=== PATIENT | female | born 1940 | race Hispanic/Latino ===

== ENCOUNTER → 2017-12-04 | Outpatient (CLI) | payer OTHER, MEDICARE ==
[~2017-12-04] MED LIST: LIDOCAINE/PRILOCAINE CREAM 5GM TUBE TP ONE
[2017-12-04 13:37] VITALS: BP 135/68
== END | disposition home or self-care (01) ==
LOC: WHH 09:00
PROVIDERS: ATTEND Surgery
DX: I87.322 Chronic venous hypertension (idiopathic) with inflammation of left lower extremity (principal); L97.222 Non-pressure chronic ulcer of left calf with fat layer exposed; K21.9 Gastro-esophageal reflux disease without esophagitis; F32.9 Major depressive disorder, single episode, unspecified; Z87.891 Personal history of nicotine dependence
CPT/HCPCS: 11042; 87070; 87077 ×3; 87186 ×3; A6021; A6212; G0463; J3490

== ENCOUNTER → 2017-12-11 | Outpatient (CLI) | payer OTHER, MEDICARE ==
[~2017-12-11] MED LIST changes: +GENTAMICIN SULFATE 15 GM CREAM.GM. TP ONE; -LIDOCAINE/PRILOCAINE CREAM 5GM TUBE TP ONE
[2017-12-11 12:44] VITALS: BP 134/70
== END | disposition home or self-care (01) ==
LOC: WHH 09:45
PROVIDERS: ATTEND Surgery
DX: I87.322 Chronic venous hypertension (idiopathic) with inflammation of left lower extremity (principal); L97.222 Non-pressure chronic ulcer of left calf with fat layer exposed; K21.9 Gastro-esophageal reflux disease without esophagitis; F32.9 Major depressive disorder, single episode, unspecified; Z87.891 Personal history of nicotine dependence
CPT/HCPCS: G0463

== ENCOUNTER → 2017-12-18 | Outpatient (CLI) | payer OTHER, MEDICARE ==
[~2017-12-18] MED LIST changes: -GENTAMICIN SULFATE 15 GM CREAM.GM. TP ONE; +LIDOCAINE/PRILOCAINE CREAM 5GM TUBE TP ONE
[2017-12-18 13:41] VITALS: BP 135/79
== END | disposition home or self-care (01) ==
LOC: WHH 08:45
PROVIDERS: ATTEND Surgery
DX: I87.322 Chronic venous hypertension (idiopathic) with inflammation of left lower extremity (principal); L97.222 Non-pressure chronic ulcer of left calf with fat layer exposed; K21.9 Gastro-esophageal reflux disease without esophagitis; F32.9 Major depressive disorder, single episode, unspecified; M19.272 Secondary osteoarthritis, left ankle and foot; B95.2 Enterococcus as the cause of diseases classified elsewhere; B96.5 Pseudomonas (aeruginosa) (mallei) (pseudomallei) as the cause of diseases classified elsewhere; Z87.891 Personal history of nicotine dependence
CPT/HCPCS: G0463; J3490; 11042

== ENCOUNTER → 2017-12-25 | Outpatient (CLI) | payer OTHER, MEDICARE ==
[2017-12-25 13:07] VITALS: BP 127/53
== END | disposition home or self-care (01) ==
LOC: WHH 09:15
PROVIDERS: ATTEND Surgery
DX: I87.332 Chronic venous hypertension (idiopathic) with ulcer and inflammation of left lower extremity (principal); L97.222 Non-pressure chronic ulcer of left calf with fat layer exposed; K21.9 Gastro-esophageal reflux disease without esophagitis; F32.9 Major depressive disorder, single episode, unspecified; B95.2 Enterococcus as the cause of diseases classified elsewhere; B96.5 Pseudomonas (aeruginosa) (mallei) (pseudomallei) as the cause of diseases classified elsewhere; Z87.891 Personal history of nicotine dependence
CPT/HCPCS: 11042; A6021; J3490

== ENCOUNTER → 2018-01-01 | Outpatient (CLI) | payer OTHER, MEDICARE | END | disposition home or self-care (01) | LOC: RAH 11:17 | PROVIDERS: ATTEND Surgery | DX: S81.802A Unspecified open wound, left lower leg, initial encounter (principal); M77.32 Calcaneal spur, left foot; M19.272 Secondary osteoarthritis, left ankle and foot; X58.XXXA Exposure to other specified factors, initial encounter; Y93.89 Activity, other specified; Y92.89 Other specified places as the place of occurrence of the external cause; Y99.8 Other external cause status | CPT/HCPCS: 73590 ==

== ENCOUNTER → 2018-01-01 | Outpatient (CLI) | payer OTHER, MEDICARE ==
[2018-01-01 10:50] LABS: BASOPHILS % (AUTO) 0.6 % (0.0-5.0); EOSINOPHILS % (AUTO) 2.1 % (0.0-8.0); HEMATOCRIT 37.7 % (36-48); LYMPHOCYTES % (AUTO) 22.1 % (21.0-51.0); MEAN CORPUSCULAR HEMOGLOBIN 31.2 pg (27.0-33.0); MEAN CORPUSCULAR HGB CONC 33.4 g/dL (32.0-36.0); MEAN CORPUSCULAR VOLUME 93.4 fL (79-99); MONOCYTES % (AUTO) 10.3 % (3.0-13.0); NEUTROPHILS % (AUTO) 64.9 % (40.0-77.0); NUCLEATED RED BLOOD CELLS 0.1 % (0.0-0.19); PLATELET COUNT (AUTO) 172 K/uL (130-400); RED BLOOD CELL COUNT(AUTO) 4.04 MIL/uL (4.00-5.50); RED CELL DISTRIBUTION WIDTH 13.2 % (11.0-15.5)
[2018-01-01 10:56] LABS: HEMOGLOBIN A1C 5.7 % (4.0-6.0)
[2018-01-01 10:57] LABS: ALBUMIN 3.6 g/dL (3.5-5.0); CARBON DIOXIDE 29 mmol/L (21-32); CHLORIDE 106 mmol/L (101-111); CREATININE 0.8 mg/dL (0.5-1.5); GLOMERULAR FILTR. RATE CALC 74 mL/min (>60); GLUCOSE,RANDOM 95 mg/dL (70-105); POTASSIUM 4.3 mmol/L (3.5-5.1); SODIUM SERUM 141 mmol/L (136-145); UREA NITROGEN, BLOOD 15 mg/dL (7-18)
[2018-01-01 11:13] LABS: CRP QUANTITATIVE < 2.00 mg/L (0.00-9.0)
[2018-01-01 11:55] LABS: ERYTHROCYTE SEDIMENTATION RATE 10 MM/HR (0-30)
[2018-01-01 13:33] VITALS: BP 129/78
== END | disposition home or self-care (01) ==
LOC: WHH 09:00
PROVIDERS: ATTEND Surgery
DX: I87.322 Chronic venous hypertension (idiopathic) with inflammation of left lower extremity (principal); L97.222 Non-pressure chronic ulcer of left calf with fat layer exposed; K21.9 Gastro-esophageal reflux disease without esophagitis; F32.9 Major depressive disorder, single episode, unspecified; B95.2 Enterococcus as the cause of diseases classified elsewhere; B96.5 Pseudomonas (aeruginosa) (mallei) (pseudomallei) as the cause of diseases classified elsewhere; M19.272 Secondary osteoarthritis, left ankle and foot; Z87.891 Personal history of nicotine dependence
CPT/HCPCS: 11042; 36415; 73590; 80048; 82040; 83036; 84134; 85025; 85651; 86140; 87070; A6209; J3490

== ENCOUNTER → 2018-01-08 | Outpatient (CLI) | payer OTHER, MEDICARE ==
[2018-01-08 14:06] VITALS: BP 122/59
== END | disposition home or self-care (01) ==
LOC: WHH 09:00
PROVIDERS: ATTEND Surgery
DX: I87.322 Chronic venous hypertension (idiopathic) with inflammation of left lower extremity (principal); L97.222 Non-pressure chronic ulcer of left calf with fat layer exposed; K21.9 Gastro-esophageal reflux disease without esophagitis; F32.9 Major depressive disorder, single episode, unspecified; M19.272 Secondary osteoarthritis, left ankle and foot; B95.2 Enterococcus as the cause of diseases classified elsewhere; B96.5 Pseudomonas (aeruginosa) (mallei) (pseudomallei) as the cause of diseases classified elsewhere; Z87.891 Personal history of nicotine dependence
CPT/HCPCS: 11042; A6209; J3490

== ENCOUNTER → 2018-01-29 | Outpatient (CLI) | payer OTHER, MEDICARE ==
[2018-01-29 08:45] VITALS: BP 136/67
== END | disposition home or self-care (01) ==
LOC: WHH 08:30
PROVIDERS: ATTEND Surgery
DX: S81.802D Unspecified open wound, left lower leg, subsequent encounter (principal); K21.9 Gastro-esophageal reflux disease without esophagitis; F32.9 Major depressive disorder, single episode, unspecified; M19.272 Secondary osteoarthritis, left ankle and foot; Z87.891 Personal history of nicotine dependence; X58.XXXD Exposure to other specified factors, subsequent encounter
CPT/HCPCS: A6209; G0463

== ENCOUNTER 2018-02-05 08:30 | Outpatient (CLI) | payer OTHER, MEDICARE ==
[2018-02-05 13:20] VITALS: BP 133/65
== END 2018-02-05 16:00 | disposition home or self-care (01) ==
LOC: WHH 08:30
PROVIDERS: ATTEND Surgery
DX: I87.322 Chronic venous hypertension (idiopathic) with inflammation of left lower extremity (principal); L97.228 Non-pressure chronic ulcer of left calf with other specified severity; K21.9 Gastro-esophageal reflux disease without esophagitis; F32.9 Major depressive disorder, single episode, unspecified; M19.272 Secondary osteoarthritis, left ankle and foot; B95.2 Enterococcus as the cause of diseases classified elsewhere; B96.5 Pseudomonas (aeruginosa) (mallei) (pseudomallei) as the cause of diseases classified elsewhere; Z87.891 Personal history of nicotine dependence
CPT/HCPCS: G0463

== ENCOUNTER 2018-12-08 08:58 | Emergency (ER) | payer OTHER, MEDICARE ==
[2018-12-08 09:34] LABS: BASOPHILS % (AUTO) 0.6 % (0.0-5.0); EOSINOPHILS % (AUTO) 2.2 % (0.0-8.0); HEMATOCRIT 39.3 % (36-48); MEAN CORPUSCULAR HEMOGLOBIN 32.8 pg (27.0-33.0); MEAN CORPUSCULAR HGB CONC 34.2 g/dL (32.0-36.0); MEAN CORPUSCULAR VOLUME 95.9 fL (79-99); MONOCYTES % (AUTO) 8.3 % (3.0-13.0); NEUTROPHILS % (AUTO) 67.9 % (40.0-77.0); NUCLEATED RED BLOOD CELLS 0.1 % (0.0-0.19); PLATELET COUNT (AUTO) 171 K/uL (130-400); RED CELL DISTRIBUTION WIDTH 13.4 % (11.0-15.5); WHITE BLOOD COUNT (AUTO) 4.8 K/uL (4.8-10.8)
[2018-12-08] MEDS ORDERED: DiphenhydrAMINE HCL 50 MG/ML VIAL ONE (09:44)
[2018-12-08] MEDS ORDERED: ONDANSETRON HCL 4 MG/2 ML VIAL ONE (09:44)
[2018-12-08] MEDS ORDERED: METHYLPREDNISOLONE SOD SUCC 125MG/2ML VIAL ONE (09:45)
[2018-12-08] MEDS ORDERED: TETANUS/DIPHTHERIA TOXOID [ADULT] 0.5 ML VIAL IM ONE (09:45)
[2018-12-08 09:46] LABS: INR 0.95 (0.85-1.15)
[2018-12-08] MEDS ORDERED: SODIUM CHLORIDE 0.9% 1000ML 1,000 ML IV ONE (09:46)
[2018-12-08 09:53] LABS: CREATININE 0.8 mg/dL (0.5-1.5); POTASSIUM 4.1 mmol/L (3.5-5.1)
[2018-12-08 09:59] LABS: ALBUMIN 3.9 g/dL (3.5-5.0); BILIRUBIN,TOTAL 0.7 mg/dL (0.2-1.0); TOTAL PROTEIN, SERUM 6.5 g/dL (6.0-8.3)
[2018-12-08 10:45] LABS: APPEARANCE,URINE Clear (CLEAR); BILIRUBIN,URINE Negative (NEGATIVE); COLOR,URINE Yellow (YELLOW); GLUCOSE, URINE (UA) Negative (NEGATIVE); KETONES,URINE Negative (NEGATIVE); LEUKOCYTE ESTERASE ,URINE Negative (NEGATIVE); NITRATE,URINE Negative (NEGATIVE); OCCULT BLOOD,URINE Negative (NEGATIVE); PH,URINE 8.5 (5.0-8.0); PROTEIN,URINE Negative (NEGATIVE); UROBILINOGEN,URINE 0.2 mg/dL (0.2-1.0)
[2018-12-08] MEDS ORDERED: IOHEXOL 350 MG/ML 100ML INFUS..BTL IV ONE (11:12)
== END 2018-12-08 13:02 | disposition home or self-care (01) ==
LOC: EDH 08:58
DX: S09.8XXA Other specified injuries of head, initial encounter (principal); K57.32 Diverticulitis of large intestine without perforation or abscess without bleeding; E78.00 Pure hypercholesterolemia, unspecified; F32.9 Major depressive disorder, single episode, unspecified; Z91.041 Radiographic dye allergy status; W01.0XXA Fall on same level from slipping, tripping and stumbling without subsequent striking against object, initial encounter; Y93.89 Activity, other specified; Y92.89 Other specified places as the place of occurrence of the external cause; Y99.8 Other external cause status
CPT/HCPCS: 36415; 70450; 70486; 71045; 72125; 74177; 80053; 81003; 83690; 84484; 85025; 85610; 85730; 87040; 90471; 90714; 93005; 96374; 96375; 99285; J1200; J2405; J2930; J7030; Q9967

== ENCOUNTER 2021-02-08 19:26 | Emergency (ER) | payer OTHER, MEDICARE ==
[~2021-02-08] VITALS: Ht 152.4 cm; Wt 70.3 kg
[2021-02-08] MEDS ORDERED: ACETAMINOPHEN 325 MG TAB PO ONE (20:00)
[2021-02-08 23:01] VITALS: BP 130/60
== END 2021-02-08 23:08 | disposition home or self-care (01) ==
LOC: EDH 19:26
DX: S00.83XA Contusion of other part of head, initial encounter (principal); S80.01XA Contusion of right knee, initial encounter; S80.12XA Contusion of left lower leg, initial encounter; M54.2 Cervicalgia; G89.29 Other chronic pain; M54.50 Low back pain, unspecified; Z91.041 Radiographic dye allergy status; E78.00 Pure hypercholesterolemia, unspecified; Z88.8 Allergy status to other drugs, medicaments and biological substances; W01.198A Fall on same level from slipping, tripping and stumbling with subsequent striking against other object, initial encounter; Y93.89 Activity, other specified; Y92.89 Other specified places as the place of occurrence of the external cause; Y99.8 Other external cause status
CPT/HCPCS: 70450; 72125; 73562; 73590

== ENCOUNTER 2021-02-14 14:36 | Emergency (ER) | payer OTHER, MEDICARE ==
[~2021-02-14] VITALS: Ht 152.4 cm; Wt 81.6 kg
[2021-02-14 15:53] VITALS: BP 149/82
== END 2021-02-14 15:54 | disposition home or self-care (01) ==
LOC: EDH 14:36
DX: S80.01XA Contusion of right knee, initial encounter (principal); Z88.8 Allergy status to other drugs, medicaments and biological substances; W01.0XXA Fall on same level from slipping, tripping and stumbling without subsequent striking against object, initial encounter; Y93.89 Activity, other specified; Y92.89 Other specified places as the place of occurrence of the external cause; Y99.8 Other external cause status
CPT/HCPCS: 73562

== ENCOUNTER → 2022-03-13 | Outpatient (CLI) | payer OTHER, MEDICARE ==
[~2022-03-13] MED LIST changes: -LIDOCAINE/PRILOCAINE CREAM 5GM TUBE TP ONE; +REGADENOSON 0.4 MG/5 ML PF SYG IVP SCH
== END | disposition home or self-care (01) ==
LOC: RAH 09:03
PROVIDERS: ATTEND Internal Medicine Interventional Cardiology
DX: R06.02 Shortness of breath (principal)
CPT/HCPCS: 78452; 96374; 93017; J2785; A9500 ×2

== ENCOUNTER 2022-04-24 09:37 | Day surgery (SDC) | payer OTHER, MEDICARE ==
[2022-04-22 11:46] LABS: BASOPHILS % (AUTO) 0.5 % (0.0-5.0); EOSINOPHILS % (AUTO) 1.6 % (0.0-8.0); HEMATOCRIT 38.8 % (36-48); LYMPHOCYTES % (AUTO) 24.9 % (21.0-51.0); MONOCYTES % (AUTO) 9.7 % (3.0-13.0); NEUTROPHILS % (AUTO) 62.4 % (40.0-77.0); PLATELET COUNT (AUTO) 180 K/uL (130-400); RED CELL DISTRIBUTION WIDTH 12.9 % (11.0-15.5); WHITE BLOOD COUNT (AUTO) 4.3 K/uL (4.8-10.8)
[2022-04-22 11:52] VITALS: BP 146/81
[2022-04-22 11:55] LABS: CREATININE 0.9 mg/dL (0.5-1.5); INR 1.05 (0.85-1.15); POTASSIUM 3.9 mmol/L (3.5-5.1); PROTHROMBIN TIME 11.4 SEC (9.6-11.6)
[2022-04-22 11:57] LABS: PARTIAL THROMBOPLASTIN TIME 29.1 SEC (26.3-35.5)
[2022-04-24] VITALS (10 sets, daily range): BP systolic 98–115; BP diastolic 43–57
[~2022-04-24] VITALS: Ht 142.2 cm; Wt 66.4 kg
[~2022-04-24 09:37] MED LIST changes: +AEC81 PO; +ISOS30TA92 PO; +METO25TA6 PO; -REGADENOSON 0.4 MG/5 ML PF SYG IVP SCH
[2022-04-24] MEDS ORDERED: 0.9%NACL 1000ML 1,000 ML IV ONE (09:55)
[2022-04-24] MEDS ORDERED: SOLU-MEDROL 125MG VIAL ONE (09:56)
[2022-04-24] MEDS ORDERED: DiphenhydrAMINE HCL 50 MG/ML VIAL ONE ×2 (09:56→13:37)
[2022-04-24] MEDS ORDERED: NITROGLYCERIN 50MG VIAL ONE (13:18)
[2022-04-24] MEDS ORDERED: IOHEXOL 350 MG/ML 100ML INFUS..BTL IV ONE (13:18)
[2022-04-24] MEDS ORDERED: ISOVUE-370 50ML VIAL IV ONE (13:18)
[2022-04-24] MEDS ORDERED: LIDOCAINE HCL 1% MDV 50ML VIAL ONE (13:18)
[2022-04-24] MEDS ORDERED: ISOS60TA77 PO (16:59)
== END 2022-04-24 18:15 | disposition home or self-care (01) ==
LOC: DAH 09:37
PROVIDERS: ATTEND Internal Medicine Interventional Cardiology
DX: I25.119 Atherosclerotic heart disease of native coronary artery with unspecified angina pectoris (principal); I11.0 Hypertensive heart disease with heart failure; I50.32 Chronic diastolic (congestive) heart failure; E78.2 Mixed hyperlipidemia; E66.01 Morbid (severe) obesity due to excess calories; Z68.31 Body mass index [BMI] 31.0-31.9, adult; Z82.49 Family history of ischemic heart disease and other diseases of the circulatory system; Z98.890 Other specified postprocedural states; Z79.01 Long term (current) use of anticoagulants; Z79.82 Long term (current) use of aspirin; Z79.899 Other long term (current) drug therapy
CPT/HCPCS: 80048; 85025; 85610; 85730; 36415; 71045; 93005; 93458; C1894 ×2; C1760; J1200 ×2; Q9967 ×2; J7030; J2930; J1644; J3490 ×2; A4215; A4222; A4221; A4663; A4216; A4606; Q9965; A4223 ×3